=== PATIENT | male | born 1990 | race African-American/Black ===

== ENCOUNTER 2016-09-08 17:13 | Inpatient (IN) | payer MEDICAID ==
[~2016-09-08] VITALS: Ht 190.5 cm; Wt 164.2 kg
--- NOTE | 2016-09-08 17:38 | NUR ---
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 PLACED ON MONITOR. AWAITING MD ORDER.
--- NOTE | 2016-09-08 17:44 | NUR ---
EKG COMPLETED BY YENIFER LORENZO EMT
[2016-09-08] MEDS ORDERED: IV NS 0.9% 1,000 ML ONE ×2 (17:56→21:22)
[2016-09-08] MEDS ORDERED: IV SET PRIMARY PUMP SET 1 EA INFUS.SET MC ONE ×5 (17:56→23:41)
[2016-09-08] MEDS ORDERED: ADENOSINE 6 MG/2 ML VIAL ONE ×2 (17:56→18:09)
[2016-09-08] MEDS ORDERED: IV SET PRIMARY 1 EA INFUS.SET MC ONE (18:04)
[2016-09-08] MEDS ORDERED: IV NS 0.9% 500 ML IV ONE (18:04)
[2016-09-08] MEDS ORDERED: DILTIAZEM HCL 25 MG IV ONE (18:14)
[2016-09-08 18:25] LABS: BASOPHILS # (AUTO) 0.2 /CMM (0.0-0.2); BASOPHILS % (AUTO) 2.4 % (0.0-2.0); EOSINOPHILS # (AUTO) 0.1 /CMM (0.0-0.7); EOSINOPHILS % (AUTO) 0.6 % (0.0-6.0); HEMATOCRIT 49 % (39-51); LYMPHOCYTES # (AUTO) 2.8 /CMM (0.8-4.8); MEAN CORPUSCULAR HEMOGLOBIN 28 PG (26.0-33.0); MEAN CORPUSCULAR HGB CONC 33 g/dl (31.0-36.0); MEAN CORPUSCULAR VOLUME 87 fL (80-96); MONOCYTES # (AUTO) 0.4 /CMM (0.1-1.30); NEUTROPHILS # (AUTO) 6.4 /CMM (1.8-8.9); PLATELET COUNT (AUTO) 210 /CMM (150-450); RDW COEFFICIENT OF VARIATION 14.9 (11.5-15.0); RED BLOOD CELL COUNT(AUTO) 5.71 MIL/uL (4.5-6.0); WHITE BLOOD COUNT (AUTO) 9.9 K/uL (4.3-11.0)
[2016-09-08] MEDS ORDERED: ADENOSINE 6 MG/2 ML VIAL IVP ONE ×3 (18:30)
[2016-09-08] MEDS ORDERED: DILTIAZEM HCL 25 MG IV IV ONE (18:30)
[2016-09-08] MEDS ORDERED: IV NS 0.9% 1,000 ML BAG IV ONE (18:30)
[2016-09-08 18:31] LABS: CALCIUM, SERUM 8.7 mg/dL (8.5-10.1); CARBON DIOXIDE 16 mmol/L (21-32); CHLORIDE 102 mmol/L (98-107); CREATININE 1.7 mg/dL (0.6-1.3); GLUCOSE 276 mg/dL (74-106); SODIUM SERUM 137 mmol/L (136-145); UREA NITROGEN, BLOOD 10 mg/dL (7-18)
[2016-09-08 18:33] LABS: POTASSIUM 2.6 mmol/L (3.5-5.1); PROTHROMBIN TIME 10.4 SECS (9.5-12.7)
[2016-09-08 18:38] LABS: TROPONIN I < 0.017 ng/mL (0.00-0.056)
[2016-09-08] MEDS ORDERED: POTASSIUM CL. PREMIX PERIPHER. 100 ML ONE (18:42)
[2016-09-08] MEDS ORDERED: POTASSIUM CHLORIDE 20 MEQ TAB.PRT.SR PO ONE ×3 (18:42→21:00)
[2016-09-08] MEDS ORDERED: MORPHINE SULFATE INJ 4 MG/ML DISP.SYRIN ONE (18:54)
[2016-09-08] MEDS ORDERED: ONDANSETRON HCL/PF 4 MG/2 ML VIAL ONE (18:54)
[2016-09-08] MEDS: POTASSIUM CL. PREMIX PERIPHER. 50 ML IV SCH ×2 (18:56→20:00)
[2016-09-08] MEDS ORDERED: MORPHINE SULFATE INJ 2 MG/ML DISP.SYRIN IV ONE (19:00)
[2016-09-08] MEDS ORDERED: ONDANSETRON HCL/PF - ER 4 MG/2 ML VIAL IV ONE (19:00)
--- NOTE | 2016-09-08 19:25 | NUR ---
REPORT GIVEN TO ED FOR CLARITZA
--- NOTE | 2016-09-08 19:56 | NUR ---
NOTED PT HYPERVENTILATING, APPEARS ANXIOUS. PT C/O L SIDED CHEST 10/05. ER MD ROBERT AWARE WITH ORDERS RECEIVED. WILL CARRY OUT ORDERS.
[2016-09-08] MEDS ORDERED: LORAZEPAM INJ 2 MG/ML VIAL IV ONE (20:00)
[2016-09-08] MEDS ORDERED: LORAZEPAM INJ 2 MG/ML VIAL ONE (20:01)
--- NOTE | 2016-09-08 20:06 | NUR ---
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
--- NOTE | 2016-09-08 20:08 | NUR ---
PT MED[employer] ORDERED.
--- NOTE | 2016-09-08 20:15 | NUR ---
PATIENT WILL BE ADMITTED INTO ROOM 315-2
--- NOTE | 2016-09-08 20:22 | NUR ---
REPORT GIVEN TO THEO NICOLE. PENDING HOSPITAL ADMISSION.
--- NOTE | 2016-09-08 20:26 | NUR ---
BRIGIDO RAMON AT BEDSIDE TO TREY FOLEY
--- NOTE | 2016-09-08 20:56 | NUR ---
REPORT CALLED TO TELE 1 RACHEL FRANCO. WILL TRANSPORT PT VIA ACLS PROTOCOL.
[2016-09-08] MEDS ORDERED: MAGNESIUM HYDROXIDE 30 ML UDC PO PRN (21:00)
[2016-09-08] MEDS ORDERED: AMIODARONE 150 MG in IV D5W 100 ML IV ONE ×4 (21:00)
[2016-09-08] MEDS ORDERED: HYDROCODONE/APAP 5/325MG 1 EACH TABLET PO PRN (21:00)
[2016-09-08] MEDS ORDERED: ONDANSETRON HCL/PF 4 MG/2 ML VIAL IVP PRN (21:00)
[2016-09-08] MEDS ORDERED: AMIODARONE 900 MG in IV D5W 482 ML IV PRN (21:00)
[2016-09-08] MEDS ORDERED: ZOLPIDEM TARTRATE 5 MG TABLET PO PRN (21:00)
[2016-09-08] MEDS ORDERED: NITROGLYCERIN 0.4 MG/TAB BOTTLE SL PRN (21:00)
[2016-09-08] MEDS ORDERED: ACETAMINOPHEN 325 MG TABLET PO PRN (21:00)
[2016-09-08] MEDS ORDERED: MAG HYDROX/AL HYDROX/SIMETH 30 ML UDC PO PRN (21:00)
--- NOTE | 2016-09-08 21:00 | NUR ---
[facility] RN NOTES RECEIVED PTS AND REPORT FROM ER NURSE ED ,A 26Y/O A/O X4 MALE PTS. WITH ADMITTING DX OF CHEST PAIN POSSIBLE ACS , A NEW ONSET OF AFIB , ADMISSION ROUTINE CARE RENDERED , ALL NEEDS ATTENDED TOO , SEEN AND EXAMINE BY DEANGELO FOFANA , ORDERED NOTED AND CARRIED OUT , V/S STABLE HR 119 WITH ORDER OF AMNIO BOLUS AND AMNIO DRIP , BODY CHECK DONE NOTED WITH INTACT SKIN , PTS ON 4 LITERS OF 02 VIA NC SATING 95%, PER ENDORSEMENT POTASSIUM IV WAS GIVEN IN ER . DEANGELO FOFANA MADE AWARE WITH ORDER TO GIVE K DUR 40 MEQ VIA PO ORDERED.IV HEPLOCK INSERTED ON LEFT AND RIGHT HAND WITH G#22 INTACT AND PATENT , IVF OF NS AT 75CC/HR ON PROGRESS, WILL CONTINUE TO MONITOR PTS.
[2016-09-08] MEDS ORDERED: CARVEDILOL 3.125 MG TABLET ONE (21:22)
[2016-09-08] MEDS ORDERED: ASPIRIN 325 MG TABLET ONE (21:23)
[2016-09-08] MEDS ORDERED: SECONDARY IV SET 1 EA INFUS.SET MC ONE (21:23)
[2016-09-08] MEDS ORDERED: AMIODARONE 150 MG/3 ML VIAL IV ONE ×3 (21:33→21:37)
[2016-09-08] MEDS ORDERED: IV D5W 100 ML IV ONE (21:35)
[2016-09-08] MEDS: IV NS 0.9% 1,000 ML IV PRN (21:37)
[2016-09-08] MEDS ORDERED: IV D5W 500 ML IV ONE (21:46)
--- NOTE | 2016-09-08 21:57 | NUR ---
MATERIAL ASSISTANT NOTES PTS HR 119 , AMIODARONE 150MG BOLUS GIVEN ORDERED.NO ASE NOTED.
[2016-09-08] MEDS: ASPIRIN 325 MG TABLET PO SCH (21:58)
[2016-09-08] MEDS: CARVEDILOL 3.125 MG TABLET PO SCH (21:59)
[2016-09-08 22:00] VITALS: BP 119/58
[2016-09-08] MEDS ORDERED: ATORVASTATIN 10 MG TABLET PO SCH (22:00)
--- NOTE | 2016-09-08 22:10 | NUR ---
PRINT SHOP HELPER NOTES AMIODARONE 900MG STARTED AT 2210HRS AT 1MG/33.3CC/HR. HR STILL ON 120 AT THIS TIME , NO ASE NOTED WILL CONTINUE TO MONITOR . WILL TITRATE THE DOSE TO 0.5 MG /HR POST 6HRS (0410HRS).
[2016-09-08] MEDS ORDERED: ATORVASTATIN 10 MG TABLET ONE (22:17)
[2016-09-08] MEDS ORDERED: Magnesium 1GM/D5W 100ML PREMIX 200 ML IV ONE (22:18)
[2016-09-08] MEDS: BLOOD SUGAR DIAGNOSTIC 1 EACH STRIP IN SCH (22:46)
[2016-09-08] MEDS ORDERED: DEXTROSE 50%-WATER 50 ML DISP.SYRIN IV PRN (23:00)
[2016-09-08] MEDS: Magnesium 1GM/D5W 100ML PREMIX 100 ML IV SCH (23:48)
[2016-09-08] MEDS: INSULIN REGULAR, HUMAN 100 UNIT/ML 3 ML VIAL SQ PRN (23:53)
[2016-09-09] VITALS: BP 126/56
[2016-09-09] MEDS: Magnesium 1GM/D5W 100ML PREMIX 100 ML IV SCH (00:37)
[2016-09-09 00:51] LABS: CALCIUM, SERUM 7.8 mg/dL (8.5-10.1); CREATININE 1.4 mg/dL (0.6-1.3); POTASSIUM 3.4 mmol/L (3.5-5.1)
[2016-09-09 00:58] LABS: TROPONIN I 0.04 ng/mL (0.00-0.056)
[2016-09-09] MEDS ORDERED: MORPHINE SULFATE INJ 4 MG/ML DISP.SYRIN ONE (02:48)
[2016-09-09] MEDS: MORPHINE SULFATE INJ 2 MG/ML DISP.SYRIN IV PRN ×2 (02:56→13:40)
--- NOTE | 2016-09-09 02:57 | NUR ---
G[facility]EN[facility] RN NOTES MORPHINE 4 MG IVP GIVEN ORDERED FOR CP PAIN 10/05 , UNABLE TO SCAN , MEDS WAS OVERRIDE BY [facility] CHARGE NURSE, MADE AWARE THAT MORPHINE WAS MANUALLY SCANNED.
[2016-09-09 04:00] VITALS: BP 145/70
[2016-09-09 06:40] LABS: BASOPHILS # (AUTO) 0.1 /CMM (0.0-0.2); BASOPHILS % (AUTO) 0.8 % (0.0-2.0); EOSINOPHILS # (AUTO) 0.1 /CMM (0.0-0.7); EOSINOPHILS % (AUTO) 0.9 % (0.0-6.0); HEMATOCRIT 40 % (39-51); HEMOGLOBIN 13.1 g/dL (13.5-17.5); LYMPHOCYTES # (AUTO) 2.4 /CMM (0.8-4.8); LYMPHOCYTES % (AUTO) 29.3 % (20.0-44.0); MEAN CORPUSCULAR HEMOGLOBIN 29 PG (26.0-33.0); MEAN CORPUSCULAR HGB CONC 33 g/dl (31.0-36.0); MEAN CORPUSCULAR VOLUME 87 fL (80-96); MONOCYTES # (AUTO) 0.8 /CMM (0.1-1.30); MONOCYTES % (AUTO) 9.6 % (2.0-12.0); NEUTROPHILS # (AUTO) 4.9 /CMM (1.8-8.9); NEUTROPHILS % (AUTO) 59.4 % (43.0-81.0); PLATELET COUNT (AUTO) 188 /CMM (150-450); RDW COEFFICIENT OF VARIATION 16.5 (11.5-15.0); RED BLOOD CELL COUNT(AUTO) 4.56 MIL/uL (4.5-6.0); WHITE BLOOD COUNT (AUTO) 8.3 K/uL (4.3-11.0)
[2016-09-09 06:53] LABS: TROPONIN I 0.031 ng/mL (0.00-0.056)
[2016-09-09] MEDS: BLOOD SUGAR DIAGNOSTIC 1 EACH STRIP IN SCH ×2 (06:57→12:57)
[2016-09-09] MEDS: INSULIN REGULAR, HUMAN 100 UNIT/ML 3 ML VIAL SQ PRN (06:57)
--- NOTE | 2016-09-09 06:59 | NUR ---
noel rn notes pts on bed awake ,remains on amio drip at 0.5mg /min/16.6 cc/hr on progress , on tele sr on the monitor no sob no distress noted at this time pts is comfortable, will endorse to rn day shift for continuity of care.
--- NOTE | 2016-09-09 07:03 | NUR ---
noel rn notes blood sugar for 730am is 100mg/dl no coverage given per sliding scale.
[2016-09-09 07:04] LABS: CALCIUM, SERUM 7.7 mg/dL (8.5-10.1); CREATININE 1.2 mg/dL (0.6-1.3); MAGNESIUM 1.8 mg/dL (1.8-2.4); PHOSPHORUS 4.6 mg/dL (2.5-4.9); POTASSIUM 4.2 mmol/L (3.5-5.1)
--- NOTE | 2016-09-09 07:10 | NUR ---
[facility] INITIAL NOTES RECEIVED PT IN BED, A/O X3, ABLE TO FOLLOW COMMANDS, ANSWERS SIMPLE QUESTIONS, PT IS ON 4L NC, SATING 100%, NO S/S OF RESP.DISTRESS OR SOB NOTED AT THIS TIME, PT IS ON TELE MONITOR SHOWING SR @68BPM, NO C/O CHEST PAIN OR DISCOMFORT AT THIS TIME, PT HAS CONDOM CATH DRAINING YELLOW URINE TO GRAVITY, PT HAS L HAND #22, NS @ 75ML/HR, R HAND #22G, AMIO @0.5MCG/MIN, C/D/I/PATENT, FLUSHING WELL, NO S/S OF INFECTION/ INFILTRATION NOTED AT THIS TIME, ALL SAFETY MEASURES IN PLACE AT ALL TIMES, CALL LIGHT WITHIN EASY REACH, WILL MONITOR PT CLOSELY FOR CHANGES
[2016-09-09] MEDS ORDERED: PANTOPRAZOLE 40 MG TABLET.DR PO SCH (07:30)
[2016-09-09 08:00] VITALS: BP_SYST 140; BP_DIAS 83; BP_DIAS 88
--- NOTE | 2016-09-09 08:50 | NUR ---
GARDENIA NOTE NON- ADMINISTERED PINK MEDICATION FOR PT SAFETY
[2016-09-09] MEDS ORDERED: ENOXAPARIN SODIUM 40 MG/0.4 ML DISP.SYRIN SQ SCH (09:00)
[2016-09-09] MEDS ORDERED: DOCUSATE SODIUM 250 MG CAPSULE PO SCH (09:00)
[2016-09-09] MEDS: ASPIRIN 325 MG TABLET PO SCH (09:46)
[2016-09-09] MEDS: CARVEDILOL 3.125 MG TABLET PO SCH (09:47)
[2016-09-09] MEDS: IV NS 0.9% 1,000 ML IV PRN (09:51)
[2016-09-09 09:56] LABS: THYROID STIMULATING HORMONE 4.331 uIU/mL (0.358-3.74)
[2016-09-09] MEDS ORDERED: AMIO200T7 PO (10:28)
[2016-09-09] MEDS ORDERED: CARV3.122 PO (10:28)
[2016-09-09 12:00] VITALS: BP 120/81
[2016-09-09] MEDS ORDERED: POTASSIUM CHLORIDE 20 MEQ TAB.PRT.SR PO ONE (12:00)
[2016-09-09 12:59] VITALS: BP 120/81
[2016-09-09] MEDS ORDERED: AMIODARONE HCL 200 MG TABLET PO SCH (13:00)
--- NOTE | 2016-09-09 15:19 | NUR ---
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
== END 2016-09-09 15:12 | disposition home or self-care (01) | DRG 201 ==
LOC: ER 17:15 → UNDOADMIN 20:31 → TELE 20:31 → TELE-TD 20:50
PROVIDERS: ADMIT Nurse Practitioner Acute Care; ATTEND Nurse Practitioner Acute Care
DX: I48.92 Unspecified atrial flutter (principal); N17.0 Acute kidney failure with tubular necrosis; D68.59 Other primary thrombophilia; I42.9 Cardiomyopathy, unspecified; E88.81 Metabolic syndrome and other insulin resistance; Z68.42 Body mass index [BMI] 45.0-49.9, adult; I48.91 Unspecified atrial fibrillation; E83.42 Hypomagnesemia; E66.01 Morbid (severe) obesity due to excess calories; I10 Essential (primary) hypertension; E87.6 Hypokalemia; Z83.3 Family history of diabetes mellitus; G47.33 Obstructive sleep apnea (adult) (pediatric); E11.9 Type 2 diabetes mellitus without complications
CPT/HCPCS: 36415; 71010-TC; 80048-TC; 80061-TC; 82962-TC; 83735-TC; 84100-TC; 84443-TC; 84484-TC; 85025-TC; 85730-TC; 87081-TC; 93307-TC; A4349; A4606; J0153; J0282; J1650; J1815; J2060; J2270; J2405; J3475; J3480; J3490; J7030; J7040; J7060; Z7610

== ENCOUNTER 2022-04-28 15:52 | Inpatient (IN) | payer MEDICAID, OTHER ==
[~2022-04-28] VITALS: Ht 190.5 cm; Wt 139.7 kg
[~2022-04-28 15:52] MED LIST: AMIO200T7 PO; CARV3.122 PO
[2022-04-28 16:24] LABS: BASOPHILS % (AUTO) 0.1 % (0.0-2.0); EOSINOPHILS % (AUTO) 0.6 % (0.0-6.0); HEMATOCRIT 47 % (39-51); LYMPHOCYTES # (AUTO) 2.4 K/uL (0.8-4.8); LYMPHOCYTES % (AUTO) 24.2 % (20.0-44.0); MEAN CORPUSCULAR HGB CONC 32 g/dl (31.0-36.0); MEAN CORPUSCULAR VOLUME 89 fL (80-96); MONOCYTES # (AUTO) 0.9 K/uL (0.1-1.30); MONOCYTES % (AUTO) 9.4 % (2.0-12.0); NEUTROPHILS # (AUTO) 6.5 K/uL (1.8-8.9); NEUTROPHILS % (AUTO) 65.7 % (43.0-81.0); PLATELET COUNT (AUTO) 220 K/uL (150-450); RED BLOOD CELL COUNT(AUTO) 5.23 MIL/uL (4.5-6.0); WHITE BLOOD COUNT (AUTO) 9.9 K/uL (4.3-11.0)
[2022-04-28] MEDS ORDERED: IV NS 0.9% 250 ML IV ONE (16:57)
[2022-04-28] MEDS ORDERED: IOHEXOL-350 100 ML VIAL IV ONE ×2 (16:57→17:24)
[2022-04-28] MEDS ORDERED: CT SWABBABLE VALVE TRANS SET 1 EA INFUS.SET MC ONE (16:57)
[2022-04-28] MEDS ORDERED: ASPIRIN 325 MG TABLET PO ONE (17:00)
[2022-04-28 17:39] LABS: CALCIUM, SERUM 9.4 mg/dL (8.5-10.1); CARBON DIOXIDE 16 mmol/L (21-32); CHLORIDE 98 mmol/L (98-107); CREATININE 1.5 mg/dL (0.6-1.3); SODIUM SERUM 134 mmol/L (136-145); UREA NITROGEN, BLOOD 9 mg/dL (7-18)
[2022-04-28 17:47] LABS: ALANINE AMINOTRANSFERASE 40 U/L (12-78); ALBUMIN 3.8 g/dL (3.4-5.0); ALKALINE PHOSPHATASE 129 U/L (46-116); ASPARTATE AMINOTRANSFERASE 17 U/L (15-37); BILIRUBIN,DIRECT 0.1 mg/dL (0.0-0.2); BILIRUBIN,TOTAL 0.3 mg/dL (0.2-1.0); TOTAL PROTEIN, SERUM 7.6 g/dL (6.4-8.2)
[2022-04-28] MEDS ORDERED: MORPHINE SULFATE INJ 2 MG/ML DISP.SYRIN ONE (17:48)
[2022-04-28 17:50] LABS: GLUCOSE 598 mg/dL (74-106)
[2022-04-28 17:52] LABS: POTASSIUM 2.8 mmol/L (3.5-5.1)
[2022-04-28] MEDS ORDERED: IV NS 0.9% 1,000 ML BAG IV ONE ×2 (18:00)
[2022-04-28] MEDS ORDERED: MORPHINE SULFATE INJ 2 MG/ML DISP.SYRIN IV ONE (18:00)
[2022-04-28] MEDS ORDERED: POTASSIUM CHLORIDE 20 MEQ POWDER PACKET PO ONE (18:00)
[2022-04-28] MEDS ORDERED: INSULIN REGULAR, HUMAN 100 UNIT/ML 10 ML VIAL SQ ONE (18:00)
[2022-04-28] MEDS ORDERED: METF-442 PO (18:10)
[2022-04-28] MEDS ORDERED: HEPARIN SUBCUT (18:10)
[2022-04-28 22:00] VITALS: BP 133/79
[2022-04-28] MEDS ORDERED: ONDANSETRON HCL/PF 4 MG/2 ML VIAL IVP PRN (22:00)
[2022-04-28] MEDS ORDERED: ACETAMINOPHEN 325 MG TABLET PO PRN (22:00)
[2022-04-28] MEDS ORDERED: DEXTROSE 50%-WATER 50 ML DISP.SYRIN IV PRN (22:00)
[2022-04-28 22:51] LABS: CALCIUM, SERUM 9.7 mg/dL (8.5-10.1); CREATININE 1.4 mg/dL (0.6-1.3); POTASSIUM 3.4 mmol/L (3.5-5.1)
[2022-04-28] MEDS: IV 1/2NS 1000 ML 1,000 ML IV SCH (22:52)
[2022-04-28] MEDS: INSULIN REGULAR, HUMAN 100 UNIT/ML 3 ML VIAL SQ PRN (23:14)
[2022-04-28] MEDS: BLOOD SUGAR DIAGNOSTIC 1 EACH STRIP IN SCH (23:15)
[2022-04-28] MEDS ORDERED: INSULIN GLARGINE, 100 UNIT/ML CARTRIDGE SQ ONE (23:19)
[2022-04-28] MEDS ORDERED: INSULIN REGULAR, HUMAN 100 UNIT/ML 3 ML VIAL ONE (23:19)
[2022-04-28] MEDS: INSULIN GLARGINE, 100 UNIT/ML CARTRIDGE SQ SCH (23:25)
[2022-04-28] MEDS ORDERED: IV NS 0.9% 1,000 ML IV ONE (23:30)
[2022-04-29] VITALS: BP 118/75
[2022-04-29] MEDS: BLOOD SUGAR DIAGNOSTIC 1 EACH STRIP IN SCH ×6 (01:42→22:00)
[2022-04-29] MEDS: INSULIN REGULAR, HUMAN 100 UNIT/ML 3 ML VIAL SQ PRN ×5 (01:45→16:40)
[2022-04-29 04:00] VITALS: BP 136/76
[2022-04-29 04:04] LABS: BASOPHILS % (AUTO) 0.4 % (0.0-2.0); HEMATOCRIT 43 % (39-51); LYMPHOCYTES # (AUTO) 2.3 K/uL (0.8-4.8); LYMPHOCYTES % (AUTO) 33.4 % (20.0-44.0); MEAN CORPUSCULAR HGB CONC 33 g/dl (31.0-36.0); MEAN CORPUSCULAR VOLUME 87 fL (80-96); MONOCYTES # (AUTO) 0.9 K/uL (0.1-1.30); MONOCYTES % (AUTO) 13.1 % (2.0-12.0); NEUTROPHILS # (AUTO) 3.6 K/uL (1.8-8.9); NEUTROPHILS % (AUTO) 52.1 % (43.0-81.0); PLATELET COUNT (AUTO) 213 K/uL (150-450); WHITE BLOOD COUNT (AUTO) 6.9 K/uL (4.3-11.0)
[2022-04-29 04:20] LABS: ALBUMIN 3.3 g/dL (3.4-5.0); BILIRUBIN,TOTAL 0.3 mg/dL (0.2-1.0); CALCIUM, SERUM 9.1 mg/dL (8.5-10.1); CREATININE 0.9 mg/dL (0.6-1.3); PHOSPHORUS 2.9 mg/dL (2.5-4.9); POTASSIUM 3.1 mmol/L (3.5-5.1); TOTAL PROTEIN, SERUM 6.9 g/dL (6.4-8.2)
[2022-04-29] MEDS: IV 1/2NS 1000 ML 1,000 ML IV SCH ×2 (04:50→11:55)
[2022-04-29] MEDS: MORPHINE SULFATE INJ 2 MG/ML DISP.SYRIN IV PRN (05:32)
[2022-04-29 08:00] VITALS: BP 134/77
[2022-04-29] MEDS: INSULIN GLARGINE, 100 UNIT/ML CARTRIDGE SQ SCH ×2 (09:05→16:42)
[2022-04-29] MEDS: ENOXAPARIN SODIUM 40 MG/0.4 ML DISP.SYRIN SQ SCH (10:33)
[2022-04-29 10:56] LABS: CREATININE 0.8 mg/dL (0.6-1.3); POTASSIUM 3.5 mmol/L (3.5-5.1)
[2022-04-29 11:11] LABS: THYROID STIMULATING HORMONE 2.19 uIU/mL (0.358-3.74)
[2022-04-29 12:00] VITALS: BP 148/90
[2022-04-29] MEDS: POTASSIUM CHLORIDE 20 MEQ TAB.PRT.SR PO SCH ×2 (12:00→12:52)
[2022-04-29 16:00] VITALS: BP 146/89
[2022-04-29] MEDS ORDERED: *INSULIN REGULAR(HUMULIN R)HUM 100 UNIT/ML VIAL SQ PRN (16:30)
[2022-04-29] MEDS ORDERED: DEXTROSE 50%-WATER 50 ML DISP.SYRIN IV PRN (16:30)
[2022-04-29 20:00] VITALS: BP 149/86
[2022-04-30 04:00] VITALS: BP 153/96
[2022-04-30 05:56] LABS: BILIRUBIN,URINE NEGATIVE (NEGATIVE); COLOR,URINE YELLOW (YELLOW); LEUKOCYTE ESTERASE ,URINE NEGATIVE (NEGATIVE); NITRITE, URINE NEGATIVE (NEGATIVE); PROTEIN,URINE NEGATIVE (NEGATIVE); UGLUCOSE TRACE mg/dL (NEGATIVE); UROBILINOGEN,URINE 0.2 EU/dL (0.2)
[2022-04-30 06:14] LABS: BACTERIA,URINE Rare /HPF (None Seen); SQUAMOUS EPITHELIAL CELL,UR Few /HPF (None Seen); WBC,URINE 0-2 /HPF (0-3)
[2022-04-30 06:15] LABS: URINE AMORPHOUS URATE Many /HPF (None Seen)
[2022-04-30 07:11] LABS: BASOPHILS # (AUTO) 0.1 K/uL (0.0-0.2); EOSINOPHILS % (AUTO) 2.6 % (0.0-6.0); HEMATOCRIT 43 % (39-51); LYMPHOCYTES # (AUTO) 2.5 K/uL (0.8-4.8); MEAN CORPUSCULAR HGB CONC 33 g/dl (31.0-36.0); MEAN CORPUSCULAR VOLUME 88 fL (80-96); MONOCYTES # (AUTO) 0.7 K/uL (0.1-1.30); MONOCYTES % (AUTO) 10.7 % (2.0-12.0); NEUTROPHILS # (AUTO) 2.8 K/uL (1.8-8.9); NEUTROPHILS % (AUTO) 45.7 % (43.0-81.0); PLATELET COUNT (AUTO) 232 K/uL (150-450); RED BLOOD CELL COUNT(AUTO) 4.89 MIL/uL (4.5-6.0); WHITE BLOOD COUNT (AUTO) 6.2 K/uL (4.3-11.0)
[2022-04-30 07:36] LABS: CALCIUM, SERUM 9.1 mg/dL (8.5-10.1); CREATININE 0.8 mg/dL (0.6-1.3); MAGNESIUM 1.9 mg/dL (1.8-2.4); PHOSPHORUS 3.6 mg/dL (2.5-4.9); POTASSIUM 3.6 mmol/L (3.5-5.1)
[2022-04-30] MEDS: BLOOD SUGAR DIAGNOSTIC 1 EACH STRIP IN SCH ×4 (07:36→21:48)
[2022-04-30 08:00] VITALS: BP 118/76
[2022-04-30] MEDS: ENOXAPARIN SODIUM 40 MG/0.4 ML DISP.SYRIN SQ SCH (08:32)
[2022-04-30] MEDS: INSULIN REGULAR, HUMAN 100 UNIT/ML 3 ML VIAL SQ PRN (08:33)
[2022-04-30] MEDS: INSULIN GLARGINE, 100 UNIT/ML CARTRIDGE SQ SCH ×2 (08:34→17:00)
[2022-04-30] MEDS: MORPHINE SULFATE INJ 2 MG/ML DISP.SYRIN IV PRN ×2 (08:43→15:43)
[2022-04-30 11:17] LABS: SITE, VBG Other; VBG COHb 0.6 %; VBG MetHb 0.3 %; VBG O2Hb 91.7 %; VBG OXYGEN SATURATION 92.5 %; VENT MODE, VBG NASAL CANNULA
[2022-04-30] MEDS ORDERED: KEY,NONCONTROL,TO KEEP IN PYXI 1 EA MC ONE (15:55)
[2022-04-30 16:00] VITALS: BP 147/95
[2022-04-30] MEDS ORDERED: INSU100I26 SQ (17:22)
[2022-04-30] MEDS ORDERED: ASPI-1169 PO (17:22)
[2022-04-30] MEDS ORDERED: METF-442 PO (17:28)
[2022-04-30] MEDS ORDERED: EMPA10TA PO (17:56)
[2022-04-30 21:00] VITALS: BP 122/80
[2022-05-01 04:00] VITALS: BP 130/76
[2022-05-01 05:00] VITALS: BP 130/76
[2022-05-01] MEDS: BLOOD SUGAR DIAGNOSTIC 1 EACH STRIP IN SCH ×2 (07:43→12:11)
[2022-05-01] MEDS: ENOXAPARIN SODIUM 40 MG/0.4 ML DISP.SYRIN SQ SCH (09:00)
[2022-05-01] MEDS: INSULIN GLARGINE, 100 UNIT/ML CARTRIDGE SQ SCH (09:01)
[2022-05-01] MEDS: INSULIN REGULAR, HUMAN 100 UNIT/ML 3 ML VIAL SQ PRN (13:21)
== END 2022-05-01 14:54 | disposition left against medical advice (07) | DRG 203 ==
LOC: ER 16:04 → TELE1 21:30 → TELE-TD 22:28 → TELE1 04-29 10:16 → MEDSG1 04-29 15:03 → TELE1 04-30 16:12 → MEDSG1 04-30 18:55
PROVIDERS: ADMIT Internal Medicine; ATTEND Nurse Practitioner Acute Care
DX: M94.0 Chondrocostal junction syndrome [Tietze] (principal); N17.0 Acute kidney failure with tubular necrosis; E11.10 Type 2 diabetes mellitus with ketoacidosis without coma; Z20.822 Contact with and (suspected) exposure to COVID-19; Z86.718 Personal history of other venous thrombosis and embolism; I42.9 Cardiomyopathy, unspecified; Z86.711 Personal history of pulmonary embolism; Z79.84 Long term (current) use of oral hypoglycemic drugs; Z79.899 Other long term (current) drug therapy; I10 Essential (primary) hypertension; E87.1 Hypo-osmolality and hyponatremia; E87.6 Hypokalemia; E66.01 Morbid (severe) obesity due to excess calories; Z68.38 Body mass index [BMI] 38.0-38.9, adult; Z82.49 Family history of ischemic heart disease and other diseases of the circulatory system; Z83.3 Family history of diabetes mellitus
CPT/HCPCS: 36415; 70450-TC; 71045-TC; 80048-TC; 80053-TC; 80061-TC; 80076-TC; 81001; 82803-TC; 82962-TC; 83605-TC; 83735-TC; 83880; 84100-TC; 84439-TC; 84443-TC; 84484-TC; 85025-TC; 87081-TC; 93307-TC; 93970-TC; 94660; 94799-TC; 97112-TC; 97116-TC; 97530-TC; A4223; A4349; C9803; G0378; J1650; J1815; J2270; J3490; J7030; J7050; Q9967